=== PATIENT | female | born 1985 | race Caucasian/White ===

== ENCOUNTER 2017-04-11 16:30 | Emergency (ER) | payer BC ==
[2017-04-11 17:16] VITALS: BP 122/78
--- NOTE | 2017-04-11 18:21 | RAD ---
INDICATION: Atraumatic lateral left ankle pain COMPARISON: Left foot same date TECHNIQUE: AP, lateral, and oblique views were obtained. FINDINGS: The bony structures, joint spaces, and soft tissues are normal for age. IMPRESSION: NEGATIVE EXAMINATION.
--- NOTE | 2017-04-11 18:21 | RAD ---
INDICATION: Mild lateral left ankle pain. No trauma COMPARISON: None TECHNIQUE: AP, lateral, and oblique views were obtained. FINDINGS: The bony structures, joint spaces, and soft tissues are normal for age. IMPRESSION: NEGATIVE EXAMINATION.
--- NOTE | 2017-04-11 19:00 | UC ---
Lower Extremity/Ankle HPI - HPI Summary HPI Summary: LEFT ANKLE SWELLING FOR FOUR WEEKS; NO KNOWN TRAUMA. IN FEBRUARY 2017 SEEN BY PRIMARY CARE PHYSICIAN FOR EDEMA OF HANDS AND FEET; HAD ECHOCARDIOGRAM AND LAB WORK DONE WITH NO FINDINGS. ONLY LEFT ANKLE THIS TIME. NO CALF PAIN. NO CHEST PAIN. NO SOB. - History of Current Complaint Chief Complaint: UCLowerExtremity Stated Complaint: ANKLE COMPLAINT Time Seen by Provider: 04/11/17 17:52 Hx Obtained From: Patient Hx Last Menstrual Period: March 23, 2017 Onset/Duration: Sudden Onset, Lasting Weeks, Still Present Severity Initially: Mild Severity Currently: Mild Aggravating Factor(s): Standing, Ambulation Alleviating Factor(s): Rest, Elevation Able to Bear Weight: Yes - Risk Factors Gout Risk Factors: Negative DVT Risk Factors: Negative Septic Arthritis Risk Factor: Negative - Allergies/Home Medications Allergies/Adverse Reactions: Allergies Allergy/AdvReac Type Severity Reaction Status Date / Time Acetaminophen AdvReac GI Verified 04/11/17 17:16 [From Tylenol with Codeine #3] Codeine AdvReac GI Verified 04/11/17 17:16 [From Tylenol with Codeine #3] Penicillins AdvReac GI Verified 04/11/17 17:16 Home Medications: Home Medications NK [No Home Medications Reported] 04/11/17 [History Confirmed 04/11/17] PMH/Surg Hx/FS Hx/Imm Hx Previously Healthy: Yes - Surgical History Surgical History: Yes Surgery Procedure, Year, and Place: 2 c-sections. ear tubes. gallbladder - Family History Known Family History: Negative: Cardiac Disease, Renal Disease, Respiratory Disease, Blood Disorder Family History: no cardio vascular issues offered in patients family - Social History Lives: With Family Alcohol Use: Occasionally Substance Use Type: None Smoking Status (MU): Light Every Day Tobacco Smoker Type: Cigarettes Amount Used/How Often: 5-7 cigarettes daily Length of Time of Smoking/Using Tobacco: since age 16 Have You Smoked in the Last Year: Yes Household Exposure Type: Cigarettes - Immunization History Most Recent Influenza Vaccination: no Review of Systems Constitutional: Negative Skin: Negative Eyes: Negative ENT: Negative Respiratory: Negative Cardiovascular: Negative Gastrointestinal: Negative Genitourinary: Negative Motor: Negative Neurovascular: Negative Musculoskeletal: Edema - LEFT LATERAL ANKLE, Myalgia Neurological: Negative Psychological: Negative All Other Systems Reviewed And Are Negative: Yes Physical Exam Triage Information Reviewed: Yes Appearance: Well-Appearing Vital Signs: Initial Vital Signs Temp 98.7 F 04/11/17 17:11 Pulse 82 04/11/17 17:11 Resp 18 04/11/17 17:11 BP 122/78 04/11/17 17:11 Pulse Ox 100 04/11/17 17:11 Vital Signs Reviewed: Yes Eye Exam: Normal ENT Exam: Normal ENT: Positive: Normal ENT inspection Dental Exam: Normal Neck exam: Normal Respiratory Exam: Normal Respiratory: Positive: Chest non-tender, Lungs clear, Normal breath sounds, No respiratory distress, No accessory muscle use Cardiovascular Exam: Normal Cardiovascular: Positive: RRR, No Murmur, Pulses Normal Abdominal Exam: Normal Musculoskeletal Exam: Normal Musculoskeletal: Positive: Strength Intact, ROM Intact, Edema @ - LEFT LATERAL ANKLE Neurological Exam: Normal Psychological Exam: Normal Skin Exam: Normal Lower Extremity Course/Dx - Differential Dx/Diagnosis Differential Diagnosis/HQI/PQRI: Fracture (Closed), Sprain, Strain Provider Diagnoses: LEFT LATERAL ANKLE EDEMA Discharge - Discharge Plan Condition: Stable Disposition: HOME Patient Education Materials: Edema (ED), Swollen Ankle Joint (ED) Referrals: [facility] [Outside] [facility] [Outside] Andrea Hernández MD [Medical Doctor] - No Primary Care Phys,NOPCP [Primary Care Provider] -
== END 2017-04-11 19:06 | disposition home or self-care (01) ==
LOC: UCEAST 16:30
DX: M79.89 Other specified soft tissue disorders (principal); F17.210 Nicotine dependence, cigarettes, uncomplicated
CPT/HCPCS: 99211; G0463

== ENCOUNTER 2018-11-22 10:58 | Emergency (ER) | payer BC ==
[2018-11-22 11:28] VITALS: BP 126/83
--- NOTE | 2018-11-22 11:47 | UC ---
Eye Complaint HPI - HPI Summary HPI Summary: Pt presents with 18 hours progressive right eye erythema, and yellow discharge. Pt states itchy, clear tears. No fb sensation. No corrective lenses. No sinus congestion, no ear pain .Pt concerned pink eye No Pt's medications reviewed this visit - History of Current Complaint Chief Complaint: UCEye Stated Complaint: RIGHT EYE CONCERN Time Seen by Provider: 11/22/18 11:44 Hx Obtained From: Patient Hx Last Menstrual Period: 11/05/18 ?: No Onset/Duration: Gradual Onset, Lasting Hours Pain Intensity: 0 - Allergies/Home Medications Allergies/Adverse Reactions: Allergies Allergy/AdvReac Type Severity Reaction Status Date / Time acetaminophen Allergy GI Upset Verified 11/22/18 11:25 codeine Allergy GI Upset Verified 11/22/18 11:25 Penicillins Allergy GI Upset Verified 11/22/18 11:25 PMH/Surg Hx/FS Hx/Imm Hx Previously Healthy: Yes - Surgical History Surgical History: Yes Surgery Procedure, Year, and Place: 2 c-sections. ear tubes. gallbladder - Family History Known Family History: Negative: Cardiac Disease, Renal Disease, Respiratory Disease, Blood Disorder Family History: no cardio vascular issues offered in patients family - Social History Alcohol Use: Occasionally Substance Use Type: None Smoking Status (MU): Light Every Day Tobacco Smoker Type: Cigarettes Amount Used/How Often: 5-7 cigarettes daily Length of Time of Smoking/Using Tobacco: since age 16 Have You Smoked in the Last Year: Yes Household Exposure Type: Cigarettes - Immunization History Most Recent Influenza Vaccination: no Review of Systems All Other Systems Reviewed And Are Negative: Yes Constitutional: Positive: Negative Eyes: Positive: Drainage, Eye Redness. Negative: Diplopia, Photophobia ENT: Positive: Negative Respiratory: Positive: Negative Physical Exam - Summary Physical Exam Summary: Vital Signs Reviewed: Yes A+Ox3, no distress Eyes: Conjunctiva Clear, MONSE. EOM intact and full, + slight injection, + yellow dry discharge on lower lid/lashes, crisp fundoscopic ENT: Hearing grossly normal TM x 2 clear, mmoist, uvula midline, no exudate, no erythema Neck: Positive: Supple Respiratory: Positive: No respiratory distress, No accessory muscle use + CTA throughout no w/r Cardiovascular: RRR nl s1, s2 no m/r CBT <2 sec abd soft + BS nt/nd no guarding, no distension Musculoskeletal Exam: CHAUHAN x 4 without difficulty Strength Intact, ROM Intact Neurological: Positive: Alert, + sensation throughout Psychological: Positive: Normal Response To Family Skin: Positive: no rash, no ecchymosis Triage Information Reviewed: Yes Vital Signs: Initial Vital Signs Temp 98.1 F 11/22/18 11:26 Pulse 81 11/22/18 11:26 Resp 16 11/22/18 11:26 BP 126/83 11/22/18 11:26 Pulse Ox 100 11/22/18 11:26 Eye Complaint Course/Dx - Course Course Of Treatment: Pt with progressive right eye erythema and drainage today, + itching. no fb. no corrective lenses. + exposure to conjunctivitis. abx. hydrate. hand hygeine. return precaution - Differential Dx/Diagnosis Provider Diagnosis: Conjunctivitis Discharge - Sign-Out/Discharge Documenting (check all that apply): Patient Departure All imaging exams completed and their final reports reviewed: No Studies - Discharge Plan Condition: Stable Disposition: HOME Prescriptions: Polymyx/Trimethoprim OPTH* [Polytrim OPHTH*] 2 drop BOTH EYES TID #1 btl Patient Education Materials: Conjunctivitis (ED) Referrals: Layla Griffin MD [Primary Care Provider] - Additional Instructions: - apply eye drops 3 times a day for 5 days. Do not touch the bottle tip to your eye -if you do, wash with alcohol wipe and let air dry - use warm water on a clean cloth to help clean secretions off your eyes - frequent and thorough hand washing is important - Wash you pillow after you complete antibiotics - if you develop eye pain, vision changes or any other concerns contact the eye doctor you were referred to for a follow-up appointment. - Billing Disposition and Condition Condition: STABLE Disposition: Home
== END 2018-11-22 12:00 | disposition home or self-care (01) ==
LOC: UCCORT 10:58
DX: H10.31 Unspecified acute conjunctivitis, right eye (principal); Z88.6 Allergy status to analgesic agent; Z88.5 Allergy status to narcotic agent; Z88.0 Allergy status to penicillin; F17.210 Nicotine dependence, cigarettes, uncomplicated
CPT/HCPCS: 99212; G0463

== ENCOUNTER 2019-02-21 09:20 | Emergency (ER) | payer BC ==
[2019-02-21 09:53] VITALS: BP 118/77
--- NOTE | 2019-02-21 09:59 | UC ---
Throat Pain/Nasal Emiliano HPI - HPI Summary HPI Summary: 34 female who was an cold symptoms for approximately 5 days and a sore throat for the same. She denies any fever or chills, no vomiting or diarrhea. She is a smoker. - History of Current Complaint Chief Complaint: UCGeneralIllness Stated Complaint: ST,RIGHT EAR COMPLAINT Time Seen by Provider: 02/21/19 09:59 Hx Obtained From: Patient Hx Last Menstrual Period: 02/18/19 ?: No Onset/Duration: Gradual Onset Severity: Mild Pain Intensity: 5 Cough: Nonproductive - Mostly nonproductive cough however she states couple of days ago she coughed up some phlegm that had some blood streaks in it. Associated Signs & Symptoms: Positive: Nasal Discharge Related History: Smoking - Her nasal coryza - Allergies/Home Medications Allergies/Adverse Reactions: Allergies Allergy/AdvReac Type Severity Reaction Status Date / Time acetaminophen Allergy GI Upset Verified 11/22/18 11:25 codeine Allergy GI Upset Verified 11/22/18 11:25 Penicillins Allergy GI Upset Verified 11/22/18 11:25 Home Medications: Home Medications NK [No Home Medications Reported] 02/21/19 [History Confirmed 02/21/19] PMH/Surg Hx/FS Hx/Imm Hx Previously Healthy: Yes - Surgical History Surgical History: Yes Surgery Procedure, Year, and Place: 2 c-sections. ear tubes. gallbladder - Family History Known Family History: Negative: Cardiac Disease, Renal Disease, Respiratory Disease, Blood Disorder Family History: no cardio vascular issues offered in patients family - Social History Alcohol Use: Occasionally Substance Use Type: None Smoking Status (MU): Light Every Day Tobacco Smoker Type: Cigarettes Amount Used/How Often: 5-7 cigarettes daily Length of Time of Smoking/Using Tobacco: since age 16 Have You Smoked in the Last Year: Yes Household Exposure Type: Cigarettes - Immunization History Most Recent Influenza Vaccination: no Review of Systems All Other Systems Reviewed And Are Negative: Yes ENT: Positive: Sore Throat, Nasal Discharge - Clear nasal coryza. Patient states sometimes she will begin her ears and the become mildly painful with some drainage however has not had that today. Respiratory: Positive: Cough - Coughed up 1 small amount of clear sputum 2 days ago which had some bright red blood streaks in it but has not had any further productive cough. Is Patient Immunocompromised?: No Physical Exam Appearance: Well-Appearing, No Pain Distress, Well-Nourished Vital Signs: Initial Vital Signs Temp 98.1 F 02/21/19 09:48 Pulse 81 02/21/19 09:48 Resp 16 02/21/19 09:48 BP 118/77 02/21/19 09:48 Pulse Ox 100 02/21/19 09:48 Vital Signs Reviewed: Yes Eyes: Positive: Conjunctiva Clear ENT: Positive: Hearing grossly normal, Pharyngeal erythema - Minimal erythema tonsils., Nasal congestion, Nasal drainage - Her nasal coryza, TMs normal - External canal is normal as well., Uvula midline. Negative: Tonsillar swelling , Tonsillar exudate, Trismus, Muffled voice, Hoarse voice Neck: Positive: Supple, Nontender, No Lymphadenopathy Respiratory: Positive: Lungs clear, Normal breath sounds, No respiratory distress, No accessory muscle use Cardiovascular: Positive: RRR, No Murmur, Pulses Normal, Brisk Capillary Refill Throat Pain/Nasal Course/Dx - Course Course Of Treatment: Rapid strep test was negative. Patient's to increase fluids and recheck in for 5 days if no improvement. - Differential Dx/Diagnosis Provider Diagnosis: URI (upper respiratory infection), Pharyngitis Discharge - Sign-Out/Discharge Documenting (check all that apply): Patient Departure All imaging exams completed and their final reports reviewed: No Studies - Discharge Plan Condition: Good Disposition: HOME Patient Education Materials: Pharyngitis (ED) Referrals: Layla Griffin MD [Primary Care Provider] - Additional Instructions: Increase fluids, warm saltwater gargles, definite follow-up with her primary care provider if no improvement in 3 or 4 days. - Billing Disposition and Condition Condition: GOOD Disposition: Home
== END 2019-02-21 10:16 | disposition home or self-care (01) ==
LOC: UCCORT 09:20
DX: J06.9 Acute upper respiratory infection, unspecified (principal); J02.9 Acute pharyngitis, unspecified; F17.210 Nicotine dependence, cigarettes, uncomplicated; Z88.0 Allergy status to penicillin; Z88.5 Allergy status to narcotic agent; Z88.8 Allergy status to other drugs, medicaments and biological substances
CPT/HCPCS: 87651; 99211; G0463